=== PATIENT | female | born 1940 | race Two or more races ===

== ENCOUNTER 2017-12-14 12:09 | Emergency (ER) | payer BC, MEDICARE ==
[~2017-12-14] VITALS: Ht 165.1 cm; Wt 79.0 kg
[2017-12-14] MEDS ORDERED: SODIUM CHLORIDE FLUSH 10ML SYR IVF ONE (13:00)
[2017-12-14] MEDS ORDERED: SODIUM CHLORIDE 0.9% 1,000ML IVBOLUS ONE (13:00)
[2017-12-14 13:13] LABS: PH, VENOUS 7.373 pH (7.320-7.420)
[2017-12-14 13:17] LABS: BASOPHILS # (AUTO) 0.03 x10^3/uL (0-0.1); BASOPHILS % (AUTO) 0 % (0-1); EOSINOPHILS # (AUTO) 0.03 x10^3/uL (0-0.4); EOSINOPHILS % (AUTO) 0 % (1-7); LYMPHOCYTES # (AUTO) 1.83 x10^3/uL (1-3.4); LYMPHOCYTES % (AUTO) 23 % (22-44); MD NO; MEAN CORPUSCULAR HEMOGLOBIN 30.1 pg (27.0-34.8); MEAN CORPUSCULAR HGB CONC 33.4 g/dL (32.4-35.8); MEAN CORPUSCULAR VOLUME 90.1 fL (80-100); MEAN PLATELET VOLUME 9.6 fL (7.4-10.4); MONOCYTES # (AUTO) 0.38 x10^3/uL (0.2-0.8); MONOCYTES % (AUTO) 5 % (2-9); NEUTROPHILS # (AUTO) 5.75 x10^3/uL (1.8-6.8); NEUTROPHILS % (AUTO) 72 % (42-75); PLATELET COUNT 179 x10^3/uL (130-400); RED BLOOD COUNT 4.84 x10^6/uL (3.82-5.3); RED CELL DISTRIBUTION WIDTH 13.9 % (9.6-15.2)
[2017-12-14 13:26] LABS: ALBUMIN 3.7 g/dL (3.4-5.0); ANION GAP 11 mmol/L (5-15); CALCIUM 9.2 mg/dL (8.5-10.1); CHLORIDE 101 mmol/L (98-107); CREATININE 0.78 mg/dL (0.55-1.02)
[2017-12-14 13:27] LABS: FIO2 ROOM AIR %
[2017-12-14] MEDS ORDERED: INSULIN REGULAR 100 UNITS/ML, 3ML VIAL ONE (14:17)
[2017-12-14] MEDS ORDERED: INSULIN REGULAR 100 UNITS/ML, 3ML VIAL SQ-INSULIN ONE (14:30)
[2017-12-14 16:17] VITALS: BP 127/75
== END 2017-12-14 16:43 | disposition home or self-care (01) ==
LOC: ED 15:00
DX: R11.2 Nausea with vomiting, unspecified (principal); E11.65 Type 2 diabetes mellitus with hyperglycemia
CPT/HCPCS: 36415; 80048; 82040; 82803; 82962; 85025; 96360; 96372; 99284; J7030

== ENCOUNTER → 2018-01-07 | Outpatient (CLI) | payer MEDICARE ==
[~2018-01-07] MED LIST: ASPI-621 PO; ATOR20TA9 PO; CARV3.1212 PO; FURO20TA3 PO; GLIPIZIDE PO; INSU100V13 SC; INSU100V8 SQ; LISI5TAB7 PO; METOPROLOL 1 MG/ML, 5ML ONE; NAPR-816 PO; OMNIPAQUE 350 MG/ML, 150 ML BOTTLE ONE; POTA20TA6 PO
== END ==
LOC: RAD 10:31
PROVIDERS: ATTEND Internal Medicine Cardiovascular Disease
DX: I65.23 Occlusion and stenosis of bilateral carotid arteries (principal); I35.0 Nonrheumatic aortic (valve) stenosis; I50.9 Heart failure, unspecified; J98.11 Atelectasis; J84.10 Pulmonary fibrosis, unspecified; I31.3 Pericardial effusion (noninflammatory); J90 Pleural effusion, not elsewhere classified
CPT/HCPCS: 71275; 74174; 93880; Q9967

== ENCOUNTER → 2018-01-11 | Outpatient (CLI) | payer MEDICARE ==
[~2018-01-11] MED LIST changes: +CARV6.252 PO; +GLIP10TA13 PO; -METOPROLOL 1 MG/ML, 5ML ONE; +NOREPINEPHRINE 1 MG/ML, 4ML ONE; -OMNIPAQUE 350 MG/ML, 150 ML BOTTLE ONE; +SPIR25TA PO
== END ==
LOC: CARD 14:44
PROVIDERS: ATTEND Internal Medicine Cardiovascular Disease
DX: J96.00 Acute respiratory failure, unspecified whether with hypoxia or hypercapnia (principal); J90 Pleural effusion, not elsewhere classified; J81.1 Chronic pulmonary edema; I50.43 Acute on chronic combined systolic (congestive) and diastolic (congestive) heart failure; I35.0 Nonrheumatic aortic (valve) stenosis
CPT/HCPCS: 94060; 94726; 94729

== ENCOUNTER 2018-01-18 08:53 | Inpatient (IN) | payer MEDICARE ==
[~2018-01-18] VITALS: Ht 165.1 cm; Wt 84.6 kg
[~2018-01-18 08:53] MED LIST changes: -CARV6.252 PO; +CEFUROXIME 1.5 GM in SODIUM CHLORIDE 0.9% 50 ML IVPB PRN; +DEXMEDETOMIDINE 200 MCG in SODIUM CHLORIDE 0.9% 48 ML IV SCH; +EPINEPHRINE 2 MG in SODIUM CHLORIDE 0.9% 248 ML IV SCH; -GLIP10TA13 PO; +MANNITOL PMX 20% 500 ML IVPB PRN; -NOREPINEPHRINE 1 MG/ML, 4ML ONE; +PHENYLEPHRINE 10 MG in SODIUM CHLORIDE 0.9% 249 ML IV PRN; +POTASSIUM CHLORIDE 80 MEQ, SODIUM BICARBONATE 8.4% 10 MEQ, MAGNESIUM SULFATE 0.5 GM, LI... IV PRN; +REGULAR INSULIN 62.5 UNITS in SODIUM CHLORIDE 0.9% 249.375 ML IV PRN; -SPIR25TA PO; +VANCOMYCIN 1,200 MG in SODIUM CHLORIDE 0.9% 250 ML IV PRN
[2018-01-18] MEDS ORDERED: SODIUM CHLORIDE 0.9% 1,000 ML IV ONE (09:36)
[2018-01-18 09:41] VITALS: BP 122/70
[2018-01-18] MEDS ORDERED: ONDANSETRON 2MG/ML, 2ML IVPush PRN (10:00)
[2018-01-18] MEDS ORDERED: CHLORHEXIDINE 15 ML BOTTLE MM PRN (10:00)
[2018-01-18] MEDS ORDERED: PLEASE ENTER HEIGHT AND WEIGHT MC SCH (10:00)
[2018-01-18] MEDS ORDERED: SPIR25TA PO (10:04)
[2018-01-18] MEDS ORDERED: GLIP10TA13 PO (10:05)
[2018-01-18] MEDS ORDERED: CARV6.252 PO (10:08)
[2018-01-18 10:21] LABS: BASOPHILS # (AUTO) 0.03 x10^3/uL (0-0.1); BASOPHILS % (AUTO) 0 % (0-1); EOSINOPHILS # (AUTO) 0.07 x10^3/uL (0-0.4); EOSINOPHILS % (AUTO) 1 % (1-7); LYMPHOCYTES % (AUTO) 38 % (22-44); MD NO; MEAN CORPUSCULAR HEMOGLOBIN 29.4 pg (27.0-34.8); MEAN PLATELET VOLUME 8.9 fL (7.4-10.4); MONOCYTES # (AUTO) 0.63 x10^3/uL (0.2-0.8); MONOCYTES % (AUTO) 8 % (2-9); NEUTROPHILS # (AUTO) 3.99 x10^3/uL (1.8-6.8); NEUTROPHILS % (AUTO) 52 % (42-75); PLATELET COUNT 181 x10^3/uL (130-400); RED BLOOD COUNT 4.06 x10^6/uL (3.82-5.3); RED CELL DISTRIBUTION WIDTH 14.3 % (9.6-15.2)
[2018-01-18 10:30] LABS: INTERNATIONAL NORMALIZED RATIO 1.17 (0.93-1.1)
[2018-01-18 10:33] LABS: ALANINE AMINOTRANSFERASE 16 U/L (12-78); ALBUMIN 3.2 g/dL (3.4-5.0); ANION GAP 9 mmol/L (5-15); CHLORIDE 106 mmol/L (98-107); CREATININE 0.57 mg/dL (0.55-1.02)
[2018-01-18 10:38] LABS: ALKALINE PHOSPHATASE 74 U/L (45-117); BILIRUBIN,TOTAL 0.5 mg/dL (0.2-1.0); TOTAL PROTEIN 6.1 g/dL (6.4-8.2)
[2018-01-18] MEDS ORDERED: FENTANYL PF 250 MCG/5ML ONE (10:50)
[2018-01-18] MEDS ORDERED: EPINEPHRINE SYRINGE 0.1 MG/ML, 10ML ONE ×4 (12:00→12:23)
[2018-01-18] MEDS ORDERED: HEPARIN 1,000 UNITS/ML, 10ML ONE (12:25)
[2018-01-18] MEDS ORDERED: SODIUM BICARB 8.4%, 50ML SYRINGE ONE ×2 (12:26→17:38)
[2018-01-18] MEDS ORDERED: ALBUMIN HUMAN 5% 500 ML IV PRN (12:30)
[2018-01-18] MEDS ORDERED: EPINEPHRINE 1 MG/ML, 1ML ONE (13:52)
[2018-01-18] MEDS ORDERED: ROCURONIUM 10 MG/ML,10ML ONE (13:52)
[2018-01-18] MEDS ORDERED: SUCCINYLCHOLINE 20 MG/ML, 10ML ONE (13:52)
[2018-01-18] MEDS ORDERED: DEXAMETHASONE 4 MG/ML, 1ML ONE (13:53)
[2018-01-18] MEDS ORDERED: PROPOFOL 10 MG/ML, 20ML ONE (13:53)
[2018-01-18] MEDS ORDERED: HEPARIN 1,000 UNITS/ML, 30ML ONE (14:57)
[2018-01-18] MEDS ORDERED: GLUCAGON 1 MG IM PRN ×2 (15:00→16:00)
[2018-01-18] MEDS ORDERED: DEXTROSE 50%, 50ML SYRINGE IVPush PRN ×2 (15:00→16:00)
[2018-01-18] MEDS ORDERED: DEXTROSE 4 GM TAB.CHEW PO PRN ×2 (15:00→16:00)
[2018-01-18] MEDS ORDERED: PROPOFOL 100 ML IV ONE (15:35)
[2018-01-18] MEDS ORDERED: PROPOFOL 100 ML IV PRN (15:46)
[2018-01-18] MEDS ORDERED: EPINEPHRINE 1 MG in SODIUM CHLORIDE 0.9% 249 ML IV PRN (15:46)
[2018-01-18] MEDS ORDERED: FENTANYL PF 250 MCG in SODIUM CHLORIDE 0.9% 250 ML IV PRN (15:49)
[2018-01-18] MEDS ORDERED: SODIUM PHOSPHATE 20 MMOL in SODIUM CHLORIDE 0.9% 250 ML IVPB PRN (15:49)
[2018-01-18] MEDS ORDERED: INSULIN REGULAR 100 UNITS/ML, 3ML VIAL SQ-INSULIN SCH (16:00)
[2018-01-18] MEDS: INSULIN LISPRO 100 UNITS/ML, PEN SQ-INSULIN SCH ×2 (16:00→20:38)
[2018-01-18] MEDS ORDERED: REGULAR INSULIN 62.5 UNITS in SODIUM CHLORIDE 0.9% 249.375 ML IV PRN (16:00)
[2018-01-18] MEDS ORDERED: BUSPIRONE 10 MG TABLET NG SCH (16:00)
[2018-01-18] MEDS ORDERED: INSULIN REGULAR 100 UNITS/ML, 3ML VIAL IVPush PRN (16:00)
[2018-01-18] MEDS ORDERED: LACTULOSE 20 GM/30 ML UDC NG PRN (16:00)
[2018-01-18] MEDS ORDERED: PHARMACY MAY ADJ FOR RENAL FX MC SCH (16:00)
[2018-01-18] MEDS ORDERED: KSCALE TO 4.0 IV SCH (16:00)
[2018-01-18] MEDS: ALBUTEROL/IPRATROPIUM 2.5MG/0.5MG, 3 ML INLINE SCH ×3 (16:00→22:45)
[2018-01-18] MEDS ORDERED: SENNOSIDES 8.8 MG/5 ML ORAL SOL NG PRN (16:00)
[2018-01-18] MEDS ORDERED: LIDOCAINE-MPF 1%, 2ML ENDO PRN (16:00)
[2018-01-18] MEDS ORDERED: MAGNESIUM SULFATE 1 GM in SODIUM CHLORIDE 0.9% 50 ML IVPB PRN (16:00)
[2018-01-18] MEDS ORDERED: ARTIFICIAL TEARS OINT 3.5 GM EACHEYE SCH (16:00)
[2018-01-18] MEDS ORDERED: SENNA/DOCUSATE TABLET NG PRN (16:00)
[2018-01-18] MEDS ORDERED: BISACODYL 10 MG SUPP PR PRN (16:00)
[2018-01-18] MEDS ORDERED: VECURONIUM 10 MG IVPush PRN (16:00)
[2018-01-18 16:18] LABS: ANION GAP 10 mmol/L (5-15); CHLORIDE 110 mmol/L (98-107); CREATININE 0.66 mg/dL (0.55-1.02); TRIGLYCERIDES 80 mg/dL (50-200)
[2018-01-18] MEDS ORDERED: POTASSIUM CHLORIDE PMX 100 ML IV ONE (17:00)
[2018-01-18 17:04] LABS: MD YES; MEAN CORPUSCULAR HEMOGLOBIN 30.9 pg (27.0-34.8); MEAN CORPUSCULAR HGB CONC 33.5 g/dL (32.4-35.8); MEAN PLATELET VOLUME 8.7 fL (7.4-10.4); PLATELET COUNT 176 x10^3/uL (130-400); RED CELL DISTRIBUTION WIDTH 14.6 % (9.6-15.2)
[2018-01-18 17:06] LABS: <RBC MORPHOLOGY> NORMAL; LYMPH#(MANUAL) 0.63 x10^3/uL (1-3.4); LYMPHS% (MANUAL) 3 % (22-44); SEG#(MANUAL) 20.37 x10^3/uL (1.8-6.8); SEGS% (MANUAL) 97 % (42-75)
[2018-01-18 17:09] LABS: <PLATELET ESTIMATE> ADEQUATE; <PLT MORPHOLOGY> NORMAL PLT MORPH
[2018-01-18] MEDS: MAGNESIUM SULFATE 1 GM in DEXTROSE 5% 100 ML IVPB PRN (17:16)
[2018-01-18] MEDS ORDERED: SODIUM BICARB 8.4%, 50ML SYRINGE IVPush ONE ×2 (17:28)
[2018-01-18] MEDS ORDERED: SODIUM BICARBONATE 1 MEQ/ML, 50ML VIAL ONE (17:37)
[2018-01-18] MEDS: SODIUM CHLORIDE 0.9% 500 ML IV SCH (17:47)
[2018-01-18] MEDS: DEXMEDETOMIDINE 200 MCG in SODIUM CHLORIDE 0.9% 48 ML IV PRN (18:10)
[2018-01-18] MEDS: EPINEPHRINE 2 MG in SODIUM CHLORIDE 0.9% 248 ML IV PRN (19:15)
[2018-01-18] MEDS: FENTANYL PF 100 MCG/2ML IVPush PRN ×2 (19:40→20:37)
[2018-01-18] MEDS: SODIUM CHLORIDE FLUSH 10ML SYR IVF SCH (19:41)
[2018-01-18] MEDS: FAMOTIDINE 20 MG/2 ML IV SCH (20:37)
[2018-01-18] MEDS ORDERED: SODIUM CHLORIDE FLUSH 10ML SYR IVF SCH (21:00)
[2018-01-18] MEDS: KSCALE TO 4.0 IV SCH (22:00)
[2018-01-18] MEDS ORDERED: POTASSIUM CHLORIDE 30 MEQ in SODIUM CHLORIDE 0.9% 100 ML IV ONE (23:45)
[2018-01-19] MEDS: DEXMEDETOMIDINE 200 MCG in SODIUM CHLORIDE 0.9% 48 ML IV PRN (00:19)
[2018-01-19] MEDS: EPINEPHRINE 2 MG in SODIUM CHLORIDE 0.9% 248 ML IV PRN ×4 (00:20→17:40)
[2018-01-19] MEDS: FENTANYL PF 100 MCG/2ML IVPush PRN ×4 (00:41→17:40)
[2018-01-19] MEDS: PROPOFOL 100 ML IV PRN ×5 (02:35→22:11)
[2018-01-19] MEDS: ALBUTEROL/IPRATROPIUM 2.5MG/0.5MG, 3 ML INLINE SCH ×6 (03:00→22:50)
[2018-01-19 03:58] LABS: ALANINE AMINOTRANSFERASE 171 U/L (12-78); ANION GAP 10 mmol/L (5-15); CHLORIDE 121 mmol/L (98-107); CREATININE 0.37 mg/dL (0.55-1.02)
[2018-01-19 04:00] LABS: ALKALINE PHOSPHATASE 50 U/L (45-117); BILIRUBIN,TOTAL 0.3 mg/dL (0.2-1.0)
[2018-01-19] MEDS: KSCALE TO 4.0 IV SCH ×4 (04:00→22:00)
[2018-01-19 04:03] LABS: CALCIUM 5.7 mg/dL (8.5-10.1)
[2018-01-19] MEDS ORDERED: POTASSIUM CHLORIDE 30 MEQ in SODIUM CHLORIDE 0.9% 100 ML IV ONE (04:30)
[2018-01-19] MEDS: MAGNESIUM SULFATE 1 GM in DEXTROSE 5% 100 ML IVPB PRN (04:37)
[2018-01-19 05:00] VITALS: BP 96/42
[2018-01-19] MEDS ORDERED: ACETAMINOPHEN 650 MG SUPP PR ONE (05:30)
[2018-01-19] MEDS ORDERED: MAGNESIUM SULFATE PMX 2GM/50ML 50 ML IV ONE (05:30)
[2018-01-19] MEDS ORDERED: ACETAMINOPHEN 650 MG SUPP ONE (05:34)
[2018-01-19 06:33] LABS: MICROSCOPIC INDICATED
[2018-01-19 06:35] LABS: CULTURE INDICATED? NO
[2018-01-19 06:41] LABS: BASOPHILS # (AUTO) 0.01 x10^3/uL (0-0.1); BASOPHILS % (AUTO) 0 % (0-1); EOSINOPHILS % (AUTO) 0 % (1-7); LYMPHOCYTES % (AUTO) 6 % (22-44); MD NO; MEAN CORPUSCULAR HEMOGLOBIN 30.5 pg (27.0-34.8); MEAN CORPUSCULAR VOLUME 89.8 fL (80-100); MEAN PLATELET VOLUME 9.4 fL (7.4-10.4); MONOCYTES % (AUTO) 4 % (2-9); NEUTROPHILS # (AUTO) 13.27 x10^3/uL (1.8-6.8); NEUTROPHILS % (AUTO) 90 % (42-75); PLATELET COUNT 127 x10^3/uL (130-400); RED BLOOD COUNT 3.23 x10^6/uL (3.82-5.3); RED CELL DISTRIBUTION WIDTH 13.7 % (9.6-15.2)
[2018-01-19] MEDS: INSULIN LISPRO 100 UNITS/ML, PEN SQ-INSULIN SCH ×3 (07:00→17:16)
[2018-01-19] MEDS ORDERED: CALCIUM GLUCONATE 4.6 MEQ in SODIUM CHLORIDE 0.9% 50 ML IV ONE (09:00)
[2018-01-19] MEDS: FAMOTIDINE 20 MG/2 ML IV SCH ×2 (09:42→19:53)
[2018-01-19] MEDS: SODIUM CHLORIDE FLUSH 10ML SYR IVF SCH ×2 (09:42→19:53)
[2018-01-19] MEDS ORDERED: MIDAZOLAM 1 MG/ML, 2ML ONE (13:37)
[2018-01-19] MEDS ORDERED: MIDAZOLAM 1 MG/ML, 5ML IVPush ONE (14:00)
[2018-01-19] MEDS ORDERED: POTASSIUM CHLORIDE PMX 100 ML IV ONE (14:00)
[2018-01-19] MEDS: SODIUM CHLORIDE 0.9% 500 ML IV SCH (15:25)
[2018-01-19] MEDS ORDERED: SODIUM CHLORIDE 0.9%, 250ML IVBOLUS ONE (16:00)
[2018-01-19] MEDS: NOREPINEPHRINE 4 MG in SODIUM CHLORIDE 0.9% 246 ML IV PRN (21:49)
[2018-01-20] MEDS ORDERED: INSULIN LISPRO 100 UNITS/ML, PEN SQ-INSULIN SCH
[2018-01-20] MEDS: ALBUTEROL/IPRATROPIUM 2.5MG/0.5MG, 3 ML INLINE SCH ×5 (02:06→23:13)
[2018-01-20] MEDS: PROPOFOL 100 ML IV PRN ×4 (02:17→13:52)
[2018-01-20] MEDS: KSCALE TO 4.0 IV SCH ×3 (04:00→16:00)
[2018-01-20 04:30] VITALS: BP 105/50
[2018-01-20 04:30] LABS: MEAN CORPUSCULAR HEMOGLOBIN 30.7 pg (27.0-34.8); MEAN CORPUSCULAR HGB CONC 33.8 g/dL (32.4-35.8); MEAN CORPUSCULAR VOLUME 90.7 fL (80-100); MEAN PLATELET VOLUME 9.2 fL (7.4-10.4); PLATELET COUNT 106 x10^3/uL (130-400); RED BLOOD COUNT 3.24 x10^6/uL (3.82-5.3)
[2018-01-20 04:36] LABS: ANION GAP 9 mmol/L (5-15); CALCIUM 7.1 mg/dL (8.5-10.1); CHLORIDE 114 mmol/L (98-107); CREATININE 0.54 mg/dL (0.55-1.02)
[2018-01-20 05:00] LABS: BASOPHILS # (AUTO) 0.02 x10^3/uL (0-0.1); BASOPHILS % (AUTO) 0 % (0-1); EOSINOPHILS % (AUTO) 0 % (1-7); LYMPHOCYTES # (AUTO) 1.71 x10^3/uL (1-3.4); LYMPHOCYTES % (AUTO) 10 % (22-44); MD SCAN; MONOCYTES # (AUTO) 1.08 x10^3/uL (0.2-0.8); MONOCYTES % (AUTO) 7 % (2-9); NEUTROPHILS # (AUTO) 13.73 x10^3/uL (1.8-6.8); NEUTROPHILS % (AUTO) 83 % (42-75)
[2018-01-20] MEDS ORDERED: AMIODARONE 900 MG in DEXTROSE 5% 482 ML IV PRN (05:00)
[2018-01-20] MEDS ORDERED: FILTER 0.22 MICRON IV PRN (05:00)
[2018-01-20] MEDS ORDERED: AMIODARONE 150 MG in DEXTROSE 5% 100 ML IV ONE (05:00)
[2018-01-20] MEDS ORDERED: ACETAMINOPHEN 500 MG TABLET PO PRN (05:00)
[2018-01-20] MEDS: NOREPINEPHRINE 4 MG in SODIUM CHLORIDE 0.9% 246 ML IV PRN ×3 (05:06→20:02)
[2018-01-20] MEDS: INSULIN LISPRO 100 UNITS/ML, PEN SQ-INSULIN SCH ×7 (05:17→23:02)
[2018-01-20] MEDS ORDERED: POTASSIUM CHLORIDE PMX 100 ML IV ONE ×2 (05:30→10:30)
[2018-01-20] MEDS ORDERED: POTASSIUM PHOS 4.4 MEQ/ML IV ONE (09:00)
[2018-01-20] MEDS: FAMOTIDINE 20 MG/2 ML IV SCH ×2 (09:00→22:55)
[2018-01-20] MEDS: SODIUM CHLORIDE FLUSH 10ML SYR IVF SCH (09:26)
[2018-01-20] MEDS ORDERED: POTASSIUM PHOSPHATE 44 MEQ in SODIUM CHLORIDE 0.9% 500 ML IV ONE (09:30)
[2018-01-20] MEDS ORDERED: LIDOCAINE 2%, 20ML ONE (09:51)
[2018-01-20] MEDS: AMIODARONE 450 MG in DEXTROSE 5% 241 ML IV PRN (12:16)
[2018-01-20] MEDS ORDERED: ACETAMINOPHEN 650 MG/20.3 ML UDC ONE (12:23)
[2018-01-20] MEDS: ENOXAPARIN 80 MG/0.8 ML SQ SCH (12:25)
[2018-01-20] MEDS: ACETAMINOPHEN 325 MG TABLET PO PRN ×3 (12:30→16:49)
[2018-01-20] MEDS: DEXMEDETOMIDINE 200 MCG in SODIUM CHLORIDE 0.9% 48 ML IV PRN ×2 (14:44→23:48)
[2018-01-20] MEDS ORDERED: ERTAPENEM 1 GM in SODIUM CHLORIDE 0.9% 50 ML IV SCH (18:30)
[2018-01-20] MEDS: INSULIN GLARGINE 100 UNITS/ML, PEN SQ-INSULIN SCH (23:01)
[2018-01-21] MEDS: ALBUTEROL/IPRATROPIUM 2.5MG/0.5MG, 3 ML INLINE SCH ×6 (03:00→23:10)
[2018-01-21 04:00] VITALS: BP 93/46
[2018-01-21] MEDS: INSULIN LISPRO 100 UNITS/ML, PEN SQ-INSULIN SCH ×4 (05:04→20:26)
[2018-01-21 05:33] LABS: CHLORIDE 116 mmol/L (98-107)
[2018-01-21 05:49] LABS: ALANINE AMINOTRANSFERASE 93 U/L (12-78); ALBUMIN 2.3 g/dL (3.4-5.0); ALKALINE PHOSPHATASE 81 U/L (45-117); ANION GAP 10 mmol/L (5-15); CALCIUM 7.4 mg/dL (8.5-10.1); CREATININE 0.44 mg/dL (0.55-1.02); TOTAL PROTEIN 5.5 g/dL (6.4-8.2); TRIGLYCERIDES 110 mg/dL (50-200)
[2018-01-21 06:06] LABS: MEAN CORPUSCULAR HEMOGLOBIN 30.8 pg (27.0-34.8); MEAN CORPUSCULAR HGB CONC 33.8 g/dL (32.4-35.8); MEAN CORPUSCULAR VOLUME 91.3 fL (80-100); RED BLOOD COUNT 3.16 x10^6/uL (3.82-5.3); RED CELL DISTRIBUTION WIDTH 14.7 % (9.6-15.2)
[2018-01-21 06:30] LABS: BASOPHILS # (AUTO) 0.03 x10^3/uL (0-0.1); BASOPHILS % (AUTO) 0 % (0-1); EOSINOPHILS % (AUTO) 0 % (1-7); LYMPHOCYTES # (AUTO) 1.31 x10^3/uL (1-3.4); LYMPHOCYTES % (AUTO) 13 % (22-44); MD SCAN; MEAN PLATELET VOLUME 9.9 fL (7.4-10.4); MONOCYTES # (AUTO) 0.57 x10^3/uL (0.2-0.8); MONOCYTES % (AUTO) 6 % (2-9); NEUTROPHILS # (AUTO) 8.38 x10^3/uL (1.8-6.8); NEUTROPHILS % (AUTO) 82 % (42-75); PLATELET COUNT 83 x10^3/uL (130-400)
[2018-01-21] MEDS: AMIODARONE 450 MG in DEXTROSE 5% 241 ML IV PRN (06:34)
[2018-01-21 06:55] LABS: HIT RESULT NEGATIVE (NEGATIVE)
[2018-01-21] MEDS: FAMOTIDINE 20 MG/2 ML IV SCH ×2 (08:40→20:25)
[2018-01-21] MEDS: INSULIN GLARGINE 100 UNITS/ML, PEN SQ-INSULIN SCH ×2 (08:41→20:27)
[2018-01-21] MEDS: PANTOPRAZOLE 40 MG IV IVPush SCH (10:13)
[2018-01-21] MEDS: FUROSEMIDE 20 MG/2 ML IV SCH ×2 (10:21→20:26)
[2018-01-21] MEDS: ENOXAPARIN 80 MG/0.8 ML SQ SCH (12:13)
[2018-01-21] MEDS: FENTANYL PF 100 MCG/2ML IVPush PRN ×5 (12:56→22:51)
[2018-01-21] MEDS: AMIODARONE 200 MG TABLET PO SCH (13:50)
[2018-01-21] MEDS: CEFTRIAXONE PMX 1GM/50ML 50 ML IV SCH (13:51)
[2018-01-21] MEDS ORDERED: POTASSIUM PHOSPHATE 44 MEQ in SODIUM CHLORIDE 0.9% 500 ML IV ONE (15:30)
[2018-01-21] MEDS: ENOXAPARIN 60 MG/0.6 ML SQ SCH (15:54)
[2018-01-21] MEDS: NOREPINEPHRINE 4 MG in SODIUM CHLORIDE 0.9% 246 ML IV PRN (15:55)
[2018-01-21] MEDS ORDERED: ALBUMIN HUMAN 25% 100 ML IV ONE (20:00)
[2018-01-21] MEDS: DEXMEDETOMIDINE 200 MCG in SODIUM CHLORIDE 0.9% 48 ML IV PRN (20:27)
[2018-01-21] MEDS: ACETAMINOPHEN 325 MG TABLET PO PRN (23:53)
[2018-01-22] MEDS: FENTANYL PF 100 MCG/2ML IVPush PRN ×6 (02:59→22:31)
[2018-01-22] MEDS: DEXMEDETOMIDINE 200 MCG in SODIUM CHLORIDE 0.9% 48 ML IV PRN ×3 (02:59→22:57)
[2018-01-22] MEDS: ALBUTEROL/IPRATROPIUM 2.5MG/0.5MG, 3 ML INLINE SCH ×6 (03:10→23:08)
[2018-01-22] MEDS: INSULIN LISPRO 100 UNITS/ML, PEN SQ-INSULIN SCH ×4 (04:32→21:36)
[2018-01-22 04:49] LABS: MEAN CORPUSCULAR HEMOGLOBIN 30.3 pg (27.0-34.8); MEAN CORPUSCULAR HGB CONC 33.5 g/dL (32.4-35.8); MEAN CORPUSCULAR VOLUME 90.5 fL (80-100); MEAN PLATELET VOLUME 9.9 fL (7.4-10.4); PLATELET COUNT 92 x10^3/uL (130-400); RED BLOOD COUNT 3.05 x10^6/uL (3.82-5.3); RED CELL DISTRIBUTION WIDTH 14.6 % (9.6-15.2)
[2018-01-22 04:51] LABS: ANION GAP 8 mmol/L (5-15); CALCIUM 7.8 mg/dL (8.5-10.1); CHLORIDE 116 mmol/L (98-107); CREATININE 0.56 mg/dL (0.55-1.02)
[2018-01-22 05:20] LABS: BASOPHILS # (AUTO) 0.02 x10^3/uL (0-0.1); BASOPHILS % (AUTO) 0 % (0-1); EOSINOPHILS # (AUTO) 0.01 x10^3/uL (0-0.4); EOSINOPHILS % (AUTO) 0 % (1-7); LYMPHOCYTES # (AUTO) 1.56 x10^3/uL (1-3.4); LYMPHOCYTES % (AUTO) 17 % (22-44); MD SCAN; MONOCYTES % (AUTO) 6 % (2-9); NEUTROPHILS # (AUTO) 7.09 x10^3/uL (1.8-6.8); NEUTROPHILS % (AUTO) 77 % (42-75)
[2018-01-22] MEDS: PANTOPRAZOLE 40 MG IV IVPush SCH (09:08)
[2018-01-22] MEDS: AMIODARONE 200 MG TABLET PO SCH (09:08)
[2018-01-22] MEDS: INSULIN GLARGINE 100 UNITS/ML, PEN SQ-INSULIN SCH ×2 (09:09→21:34)
[2018-01-22] MEDS: ALBUMIN HUMAN 25% 100 ML IV SCH ×2 (09:10→19:58)
[2018-01-22] MEDS: FUROSEMIDE 20 MG/2 ML IV SCH ×2 (10:05→21:34)
[2018-01-22] MEDS: CEFTRIAXONE PMX 1GM/50ML 50 ML IV SCH (14:44)
[2018-01-22] MEDS: ENOXAPARIN 60 MG/0.6 ML SQ SCH (16:44)
[2018-01-23] MEDS: ALBUTEROL/IPRATROPIUM 2.5MG/0.5MG, 3 ML INLINE SCH ×6 (03:25→22:28)
[2018-01-23] MEDS: FENTANYL PF 100 MCG/2ML IVPush PRN ×5 (03:34→23:38)
[2018-01-23] MEDS: DEXMEDETOMIDINE 200 MCG in SODIUM CHLORIDE 0.9% 48 ML IV PRN ×2 (03:35→12:03)
[2018-01-23] MEDS: INSULIN LISPRO 100 UNITS/ML, PEN SQ-INSULIN SCH ×4 (04:53→22:12)
[2018-01-23 05:21] LABS: MEAN CORPUSCULAR HEMOGLOBIN 30.5 pg (27.0-34.8); MEAN CORPUSCULAR HGB CONC 33.8 g/dL (32.4-35.8); MEAN CORPUSCULAR VOLUME 90.3 fL (80-100); MEAN PLATELET VOLUME 10.2 fL (7.4-10.4); PLATELET COUNT 88 x10^3/uL (130-400); RED BLOOD COUNT 2.91 x10^6/uL (3.82-5.3); RED CELL DISTRIBUTION WIDTH 15.1 % (9.6-15.2)
[2018-01-23 05:28] LABS: ANION GAP 8 mmol/L (5-15); CHLORIDE 115 mmol/L (98-107); CREATININE 0.59 mg/dL (0.55-1.02)
[2018-01-23 05:47] LABS: BASOPHILS # (AUTO) 0.01 x10^3/uL (0-0.1); BASOPHILS % (AUTO) 0 % (0-1); EOSINOPHILS % (AUTO) 0 % (1-7); LYMPHOCYTES # (AUTO) 1.31 x10^3/uL (1-3.4); LYMPHOCYTES % (AUTO) 16 % (22-44); MD SCAN; MONOCYTES # (AUTO) 0.55 x10^3/uL (0.2-0.8); MONOCYTES % (AUTO) 7 % (2-9); NEUTROPHILS # (AUTO) 6.25 x10^3/uL (1.8-6.8); NEUTROPHILS % (AUTO) 77 % (42-75)
[2018-01-23] MEDS: POTASSIUM CHLORIDE 10% 20 MEQ/15 ML UDC PO SCH ×2 (08:01→21:02)
[2018-01-23] MEDS: DOCUSATE 50 MG/5 ML, 10ML UDC NG SCH (08:02)
[2018-01-23] MEDS: AMIODARONE 200 MG TABLET PO SCH (08:02)
[2018-01-23] MEDS: PANTOPRAZOLE 40 MG IV IVPush SCH (08:02)
[2018-01-23] MEDS: ALBUMIN HUMAN 25% 100 ML IV SCH ×2 (09:02→20:58)
[2018-01-23] MEDS: METOLAZONE 5 MG TABLET PO SCH ×2 (09:16→21:04)
[2018-01-23] MEDS: INSULIN GLARGINE 100 UNITS/ML, PEN SQ-INSULIN SCH ×2 (09:28→22:11)
[2018-01-23] MEDS: FUROSEMIDE 20 MG/2 ML IV SCH ×2 (09:58→22:04)
[2018-01-23] MEDS ORDERED: METOLAZONE 5 MG TABLET PO SCH (12:00)
[2018-01-23] MEDS: OXYcodone IR 5MG TABLET PO SCH ×2 (12:03→20:07)
[2018-01-23] MEDS: CEFTRIAXONE PMX 1GM/50ML 50 ML IV SCH (13:47)
[2018-01-23] MEDS ORDERED: NOREPINEPHRINE 4 MG in SODIUM CHLORIDE 0.9% 246 ML IV PRN (14:30)
[2018-01-23] MEDS: SODIUM CHLORIDE 0.9% IV PRN ×2 (15:28→22:19)
[2018-01-23] MEDS: DEXMEDETOMIDINE IV PRN ×2 (15:28→22:19)
[2018-01-23] MEDS: ENOXAPARIN 60 MG/0.6 ML SQ SCH (15:48)
[2018-01-23] MEDS: ACETAMINOPHEN 325 MG TABLET PO PRN (16:42)
[2018-01-24] MEDS: FENTANYL PF 100 MCG/2ML IVPush PRN (01:54)
[2018-01-24] MEDS: ALBUTEROL/IPRATROPIUM 2.5MG/0.5MG, 3 ML INLINE SCH ×6 (02:47→22:22)
[2018-01-24 04:00] VITALS: BP 100/51
[2018-01-24] MEDS: OXYcodone IR 5MG TABLET PO SCH ×3 (04:54→19:52)
[2018-01-24] MEDS: INSULIN LISPRO 100 UNITS/ML, PEN SQ-INSULIN SCH ×4 (04:56→21:33)
[2018-01-24 04:58] LABS: MEAN CORPUSCULAR HEMOGLOBIN 30.4 pg (27.0-34.8); MEAN CORPUSCULAR HGB CONC 33.3 g/dL (32.4-35.8); MEAN CORPUSCULAR VOLUME 91.1 fL (80-100); RED BLOOD COUNT 2.91 x10^6/uL (3.82-5.3); RED CELL DISTRIBUTION WIDTH 14.5 % (9.6-15.2)
[2018-01-24 05:12] LABS: CHLORIDE 110 mmol/L (98-107)
[2018-01-24 05:16] LABS: ANION GAP 9 mmol/L (5-15); CALCIUM 8.3 mg/dL (8.5-10.1); CREATININE 0.63 mg/dL (0.55-1.02); TRIGLYCERIDES 113 mg/dL (50-200)
[2018-01-24 06:50] LABS: BASOPHILS # (AUTO) 0.07 x10^3/uL (0-0.1); BASOPHILS % (AUTO) 1 % (0-1); EOSINOPHILS # (AUTO) 0.01 x10^3/uL (0-0.4); EOSINOPHILS % (AUTO) 0 % (1-7); LYMPHOCYTES # (AUTO) 1.14 x10^3/uL (1-3.4); LYMPHOCYTES % (AUTO) 14 % (22-44); MD SCAN; MEAN PLATELET VOLUME 10.2 fL (7.4-10.4); MONOCYTES # (AUTO) 0.57 x10^3/uL (0.2-0.8); MONOCYTES % (AUTO) 7 % (2-9); NEUTROPHILS # (AUTO) 6.47 x10^3/uL (1.8-6.8); NEUTROPHILS % (AUTO) 78 % (42-75); PLATELET COUNT 96 x10^3/uL (130-400)
[2018-01-24] MEDS ORDERED: KETOROLAC 30 MG/1 ML IVPush PRN (09:00)
[2018-01-24] MEDS: DOCUSATE 50 MG/5 ML, 10ML UDC NG SCH (09:05)
[2018-01-24] MEDS: POTASSIUM CHLORIDE 10% 40 MEQ/30 ML UDC PO SCH ×2 (09:06→21:24)
[2018-01-24] MEDS: AMIODARONE 200 MG TABLET PO SCH (09:06)
[2018-01-24] MEDS: FUROSEMIDE 20 MG/2 ML IV SCH ×2 (09:06→21:25)
[2018-01-24] MEDS: METOLAZONE 5 MG TABLET PO SCH ×2 (09:06→21:25)
[2018-01-24] MEDS: PANTOPRAZOLE 40 MG IV IVPush SCH (09:06)
[2018-01-24] MEDS: INSULIN GLARGINE 100 UNITS/ML, PEN SQ-INSULIN SCH ×2 (09:10→21:31)
[2018-01-24] MEDS: PROPOFOL 100 ML IV PRN ×2 (11:23→23:51)
[2018-01-24] MEDS: CEFTRIAXONE PMX 1GM/50ML 50 ML IV SCH (13:33)
[2018-01-24] MEDS: ENOXAPARIN 60 MG/0.6 ML SQ SCH (15:48)
[2018-01-25] MEDS: ALBUTEROL/IPRATROPIUM 2.5MG/0.5MG, 3 ML INLINE SCH ×3 (03:02→11:10)
[2018-01-25 04:00] VITALS: BP 104/46
[2018-01-25] MEDS: OXYcodone IR 5MG TABLET PO SCH ×2 (04:14→11:34)
[2018-01-25] MEDS: INSULIN LISPRO 100 UNITS/ML, PEN SQ-INSULIN SCH ×2 (04:16→10:28)
[2018-01-25 04:28] LABS: ANION GAP 9 mmol/L (5-15); CALCIUM 7.6 mg/dL (8.5-10.1); CHLORIDE 103 mmol/L (98-107); CREATININE 0.71 mg/dL (0.55-1.02)
[2018-01-25] MEDS: PROPOFOL 100 ML IV PRN (05:27)
[2018-01-25 05:43] LABS: MD YES
[2018-01-25 05:46] LABS: MEAN CORPUSCULAR HEMOGLOBIN 30.2 pg (27.0-34.8); MEAN CORPUSCULAR HGB CONC 33.4 g/dL (32.4-35.8); MEAN CORPUSCULAR VOLUME 90.3 fL (80-100); MEAN PLATELET VOLUME 10.8 fL (7.4-10.4); PLATELET COUNT 140 x10^3/uL (130-400); RED BLOOD COUNT 3.01 x10^6/uL (3.82-5.3); RED CELL DISTRIBUTION WIDTH 15.1 % (9.6-15.2)
[2018-01-25 05:48] LABS: ANISOCYTOSIS 1+; BAND#(MANUAL) 0.25 x10^3/uL; BANDS%(MANUAL) 2 % (0-7); EOS#(MANUAL) 0.25 x10^3/uL (0.0-0.4); EOS% (MANUAL) 2 % (1-7); LYMPH#(MANUAL) 4.25 x10^3/uL (1-3.4); LYMPHS% (MANUAL) 34 % (22-44); MONOS#(MANUAL) 0.25 x10^3/uL (0.3-2.7); MONOS% (MANUAL) 2 % (2-9); POLYCHROMASIA 1+; SEGS% (MANUAL) 60 % (42-75)
[2018-01-25 05:49] LABS: <PLATELET ESTIMATE> ADEQUATE; GIANT PLATELETS 1+; LARGE PLATELETS 1+
[2018-01-25] MEDS: PANTOPRAZOLE 40 MG IV IVPush SCH (08:34)
[2018-01-25] MEDS: POTASSIUM CHLORIDE 10% 40 MEQ/30 ML UDC PO SCH (08:34)
[2018-01-25] MEDS: AMIODARONE 200 MG TABLET PO SCH (08:34)
[2018-01-25] MEDS: DOCUSATE 50 MG/5 ML, 10ML UDC NG SCH (08:34)
[2018-01-25] MEDS: METOLAZONE 5 MG TABLET PO SCH (08:34)
[2018-01-25] MEDS: FUROSEMIDE 20 MG/2 ML IV SCH (08:35)
[2018-01-25] MEDS: INSULIN GLARGINE 100 UNITS/ML, PEN SQ-INSULIN SCH (10:27)
[2018-01-25] MEDS ORDERED: LORazepam 2 MG/ML, 1ML IV PRN ×2 (13:00)
[2018-01-25] MEDS ORDERED: morphine SULFATE 10 MG/ML, 1ML IV PRN ×2 (13:00)
[2018-01-25] MEDS ORDERED: ATROPINE OPHTH SOLN 1%, 2ML PO PRN (13:00)
[2018-01-25] MEDS ORDERED: LORazepam 10 MG in DEXTROSE 5% 245 ML IV SCH (13:00)
== END 2018-01-25 17:05 | disposition hospice, inpatient (51) | DRG 273 ==
LOC: ORIP 08:53 → CSU 14:45
PROVIDERS: ADMIT Internal Medicine Cardiovascular Disease; ATTEND Internal Medicine Cardiovascular Disease
PROC: B24BZZ4 Ultrasonography of Heart with Aorta, Transesophageal (ICD-10-PCS; 2018-01-18)
PROC: 5A1221Z Performance of Cardiac Output, Continuous (ICD-10-PCS; 2018-01-18)
PROC: 5A12012 Performance of Cardiac Output, Single, Manual (ICD-10-PCS; 2018-01-18)
PROC: 5A1955Z Respiratory Ventilation, Greater than 96 Consecutive Hours (ICD-10-PCS; 2018-01-18)
PROC: 0BH18EZ Insertion of Endotracheal Airway into Trachea, Via Natural or Artificial Opening Endoscopic (ICD-10-PCS; 2018-01-18)
PROC: 30233N1 Transfusion of Nonautologous Red Blood Cells into Peripheral Vein, Percutaneous Approach (ICD-10-PCS; 2018-01-18)
PROC: B3101ZZ Fluoroscopy of Thoracic Aorta using Low Osmolar Contrast (ICD-10-PCS; 2018-01-18)
PROC: 027F3ZZ Dilation of Aortic Valve, Percutaneous Approach (ICD-10-PCS; principal; 2018-01-18 11:30)
PROC: 0W9B3ZZ Drainage of Left Pleural Cavity, Percutaneous Approach (ICD-10-PCS; 2018-01-19)
PROC: 0W993ZZ Drainage of Right Pleural Cavity, Percutaneous Approach (ICD-10-PCS; 2018-01-20)
DX: I35.0 Nonrheumatic aortic (valve) stenosis (principal); J96.21 Acute and chronic respiratory failure with hypoxia; I50.43 Acute on chronic combined systolic (congestive) and diastolic (congestive) heart failure; J15.5 Pneumonia due to Escherichia coli; J69.0 Pneumonitis due to inhalation of food and vomit; R57.0 Cardiogenic shock; A41.9 Sepsis, unspecified organism; D68.59 Other primary thrombophilia; I42.9 Cardiomyopathy, unspecified; J94.2 Hemothorax; J98.11 Atelectasis; I38 Endocarditis, valve unspecified; D64.9 Anemia, unspecified; D69.6 Thrombocytopenia, unspecified; E11.9 Type 2 diabetes mellitus without complications; E78.5 Hyperlipidemia, unspecified; I25.10 Atherosclerotic heart disease of native coronary artery without angina pectoris; I27.20 Pulmonary hypertension, unspecified; I45.81 Long QT syndrome; I48.91 Unspecified atrial fibrillation; N28.89 Other specified disorders of kidney and ureter; N63.0 Unspecified lump in unspecified breast; Z66 Do not resuscitate; Z51.5 Encounter for palliative care; Z79.4 Long term (current) use of insulin; Z82.3 Family history of stroke; Z82.49 Family history of ischemic heart disease and other diseases of the circulatory system; Z87.891 Personal history of nicotine dependence; Z83.3 Family history of diabetes mellitus; Z90.710 Acquired absence of both cervix and uterus; Z95.2 Presence of prosthetic heart valve
CPT/HCPCS: 32555; 33367; 36415; 36600; 71045; 74018; 80048; 80053; 81001; 82330; 82803; 82945; 82947; 82962; 83615; 83735; 83880; 84100; 84132; 84157; 84295; 84478; 85014; 85025; 85347; 85610; 85730; 86022; 86850; 86900; 86923; 87040; 87070; 87077; 87081; 87186; 87205; 89051; 92920; 92986; 93005; 93306; 93312; 93321; 93325; 93355; 93454; 94002; 94003; 94150; 94640; C1760; C1769; C1894; J0171; J0610; J0696; J0697; J1100; J1335; J1644; J1650; J1815; J1885; J2250; J2405; J2704; J3010; J3370; J3475; J3480; J3490; J7620; P9045; P9047; 92928; C1887; C9113; J0282; J0330; J1940; J2270; J2370; J7030; J7040; J7050; J7060; P9016; Q9967; S0028